=== PATIENT | male | born 1950 | race Caucasian/White ===

== ENCOUNTER 2017-05-12 13:53 | Outpatient (CLI) | payer MEDICARE ==
--- NOTE | 2017-05-12 14:52 | RAD ---
2 VIEW CHEST: Date: 05/12/17 COMPARISON: 06/16/16. INDICATION: Cough for 3 weeks. FINDINGS: The lungs are clear. Cardiac silhouette is normal in size. Osseous structures without degenerative ch dina. IMPRESSION: No focal consolidation. POS: [facility]
== END 2017-05-12 13:54 | disposition home or self-care (01) ==
LOC: SCSRAD 13:53
PROVIDERS: ATTEND Family Medicine
DX: R05 Cough (principal)
CPT/HCPCS: 71020

== ENCOUNTER 2017-05-18 09:22 | Outpatient (CLI) | payer MEDICARE ==
[2017-05-18 10:23] LABS: #Basophils 0.1 thou/uL (0.0-0.2); #Eosinphils 0.2 thou/uL (0.0-0.7); #Lymphocytes 1.4 thou/uL (1.20-3.40); #Monocytes 0.6 thou/uL (0.11-0.59); #Neutrophils 8.5 thou/uL (1.40-6.50); %Basophils 0.6 % (0.0-1.0); %Eosinophils 2.3 % (0.0-10.0); %Lymphocytes 12.6 % (21.0-51.0); %Monocytes 5.5 % (0.0-10.0); Red Blood Cell (RBC) Count 4.87 mill/uL (4.70-6.10); White Blood Cell (WBC) Count 10.7 thou/uL (4.8-10.8)
[2017-05-18 10:39] LABS: Anion Gap 13 mmol/L (10-20); BUN (Urea Nitrogen) 24 mg/dL (8.4-25.7); Calc. Creatinine Clearance 0 mL/min (70-130); Carbon Dioxide 26 mmol/L (23-31); Chloride 102 mmol/L (98-107); Estimated GFR-MDRD 65
--- NOTE | 2017-05-18 15:53 | EKG ---
Test Reason : Blood Pressure : / mmHG Vent. Rate : 076 BPM Atrial Rate : 076 BPM P-R Int : 142 ms QRS Dur : 096 ms QT Int : 388 ms P-R-T Axes : 048 079 012 degrees QTc Int : 436 ms Normal sinus rhythm Normal ECG No previous ECGs available Confirmed by YOJANA MULLER ([id number]) on 05/18/2017 3:53:15 PM Referred By: KUSHAL Confirmed By:YOJANA MULLER
== END 2017-05-18 09:23 | disposition home or self-care (01) ==
LOC: LABBT 09:22
PROVIDERS: ATTEND Surgery
DX: Z01.818 Encounter for other preprocedural examination (principal); K43.9 Ventral hernia without obstruction or gangrene
CPT/HCPCS: 80048; 85025; 93005; 93010

== ENCOUNTER 2017-05-25 06:39 | Day surgery (SDC) | payer MEDICARE ==
[2017-05-25] MEDS ORDERED: CEFAZOLIN/Water 2 GM/20 ML SYRINGE ONE (07:04)
[2017-05-25] MEDS ORDERED: Midazolam HCl 2 mg/2 ml Vial ONE (08:21)
[2017-05-25] MEDS ORDERED: Bupivacaine/Epinephrine 0.25% 30 ML VIAL ONE (08:38)
[2017-05-25] MEDS ORDERED: HYDROmorphone 0.5 MG/0.5 ML SYRINGE ONE (08:39)
[2017-05-25] MEDS ORDERED: Fentanyl 100 MCG/2 ML VIAL ONE (08:39)
--- NOTE | 2017-05-25 13:13 | OP ---
DATE OF SERVICE: 05/25/2017 PREOPERATIVE DIAGNOSIS: Ventral hernia. POSTOPERATIVE DIAGNOSIS: Ventral hernia. PROCEDURE: Ventral hernia repair with mesh. SURGEON: Paul Milan M.D. ANESTHESIA: General. ESTIMATED BLOOD LOSS: Minimal. COMPLICATIONS: None. SPECIMEN: None. TECHNIQUE: The patient was taken to the operating room and placed supine on the table. After genera l anesthetic was obtained, the abdomen was shaved, prepped and draped in a sterile fashion. Midline incision was made over the palpable defect in the upper midline abdomen. Cautery was used to dissect down to the hernia sac. The hernia sac was dissected back into the abdominal cavity and amputated e xposing a small defect. The preperitoneal space was bluntly dissected through this opening. The Par ietex ventral patch small brought into the sterile field. The underlay was placed in the preperitone al space, its tails were pulled up flat against the posterior abdominal wall. The 4 skirted corners were sewn via U stitch of Nurolon to the fascia. The handles were cut and removed. The wound was ir rigated. Local anesthetic was applied. The fascia was closed loosely over the mesh using interrupte d Nurolon. Skin was closed using running 3-0 Vicryl, 4-0 Monocryl, and Dermabond. The patient was e n route to recovery in stable condition. All instrument counts, needle counts, and lap counts were c orrect.
[2017-05-25] MEDS ORDERED: Lidocaine 1% PF 5 ML VIAL ONE (13:50)
[2017-05-25] MEDS ORDERED: Metoclopramide HCl 10 MG/2 ML VIAL ONE (13:50)
[2017-05-25] MEDS ORDERED: Dexamethasone 20 MG/5 ML VIAL ONE (13:50)
[2017-05-25] MEDS ORDERED: Ondansetron HCl/PF 4 MG/2 ML Vial ONE (13:50)
[2017-05-25] MEDS ORDERED: PHENYLEPHRINE-NS 100 MCG/ML 10 ML SYRINGE ONE (13:50)
[2017-05-25] MEDS ORDERED: Ketorolac Tromethamine 30 MG/ML VIAL ONE (13:50)
[2017-05-25] MEDS ORDERED: PROPOFOL 200 MG/20 ML VIAL ONE (13:50)
== END 2017-05-25 11:19 | disposition home or self-care (01) ==
LOC: SDC 06:39
PROVIDERS: ATTEND Surgery
PROC: 0WUF0JZ Supplement Abdominal Wall with Synthetic Substitute, Open Approach (ICD-10-PCS; principal; 2017-05-25)
DX: K43.9 Ventral hernia without obstruction or gangrene (principal); E78.5 Hyperlipidemia, unspecified; G61.0 Guillain-Barre syndrome; M19.90 Unspecified osteoarthritis, unspecified site; Z88.2 Allergy status to sulfonamides; Z88.7 Allergy status to serum and vaccine; Z98.1 Arthrodesis status; Z90.79 Acquired absence of other genital organ(s); Z98.890 Other specified postprocedural states; Z87.442 Personal history of urinary calculi; Z92.3 Personal history of irradiation; Z85.46 Personal history of malignant neoplasm of prostate
CPT/HCPCS: J0131; J1100; J1170; J1885; J2001; J2250; J2405; J2704; J2765; J3010